=== PATIENT | male | born 1975 | race Caucasian/White ===

== ENCOUNTER 2018-11-05 18:53 | Emergency (ER) | payer OTHER, SELFPAY ==
[2018-11-05 18:56] VITALS: BP 150/101; PULSE 77; RESP 16; TEMP 36.1; O2SAT 97; BMI 28.8
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
[2018-11-05 19:31] VITALS: BP 143/93; PULSE 74; RESP 15; O2SAT 95
== END 2018-11-05 19:40 | disposition home or self-care (01) ==
PROVIDERS: Emergency Provider Emergency Medicine
DX: S39.012A Strain of muscle, fascia and tendon of lower back, initial encounter (principal); S29.012A Strain of muscle and tendon of back wall of thorax, initial encounter; S80.811A Abrasion, right lower leg, initial encounter; V57.5XXA Driver of pick-up truck or van injured in collision with fixed or stationary object in traffic accident, initial encounter; Y93.9 Activity, unspecified; Y92.828 Other wilderness area as the place of occurrence of the external cause; Y99.9 Unspecified external cause status; G40.909 Epilepsy, unspecified, not intractable, without status epilepticus
CPT/HCPCS: 99284